=== PATIENT | female | born 2005 | race Caucasian/White ===

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

== ENCOUNTER 2024-01-05 15:17 | Observation (INO) | payer MEDICAID, SELFPAY ==
[2024-01-05] VITALS (14 sets, daily range): BP systolic 115–132; BP diastolic 62–94; PULSE 78–102; BMI 43.3
--- NOTE | 2024-01-05 15:57 | PM.IMHP ---
H&P: HPI History of Present Illness Date/Time: 01/05/24 15:57 Chief Complaint: Abdominal and back pain Narrative: this patient is a 18-year-old 2 para 0010 at 34 weeks gestation with low back pain and abdominal pain and pelvic pressure and vaginal pressure. She reports increased vaginal discharge. She denies any nausea, vomiting, fever, chills. She denies any vaginal bleeding. She denies any loss of fluid. She denies contractions. There is good movement. She denies any headache, blurry vision, epigastric pain. She denies any chest pain or shortness of breath. We will observe the patient for a time. We will check her cervix to confirm that there is no advanced dilation of the cervix. Rule out labor. Rule out urinary tract infection. We will give her treatment measures for low back pain and pelvic pain with vaginal pressure. Review of Systems Review of Systems: All systems reviewed & are unremarkable except as noted in HPI and below Constitutional: Constitutional: Denies chills, Denies fatigue, Denies fever(s) and Denies weakness Eyes: Eyes: Denies blurry vision, Denies change in vision, Denies loss of peripheral vision, Denies loss of vision, Denies other visual disturbances and Denies eye pain ENT: Denies vertigo, Denies dizziness, Denies hearing loss, Denies mouth pain, Denies nasal obstruction, Denies neck mass and Denies neck pain Cardiovascular: Cardiovascular: Denies chest pain, Denies diaphoresis, Denies syncope, Denies leg edema and Denies dyspnea Respiratory: Respiratory: Denies chest congestion, Denies cough, Denies hemoptysis, Denies dyspnea and Denies wheezing Gastrointestinal: Gastrointestinal: Denies abdominal pain, Denies constipation, Denies diarrhea, Denies nausea and Denies vomiting Genitourinary: Genitourinary: Denies hematuria, Denies change in libido, Denies nocturia, Denies genital lesions, Denies flank pain and Denies urinary urgency Musculoskeletal: Musculoskeletal: Denies abnormal gait, Denies back pain, Denies myalgias, Denies arthralgias, Denies joint swelling, Denies muscle weakness and Denies neck pain Integumentary/Breasts: Skin/Breast: Denies swelling, Denies breast pain, Denies breast mass, Denies dry skin, Denies nipple discharge, Denies unusual bruising and Denies jaundice Neurologic: Denies Neuro-related abnormal movements, Denies Abnormal speech present, Denies abnormal gait, Denies behavioral changes, Denies confusion, Denies vertigo, Denies dizziness, Denies syncope, Denies loss of vision, Denies memory loss, Denies convulsions and Denies weakness Psychiatric: Psychiatric: Denies abnormal sleep pattern, Denies behavioral changes, Denies change in libido, Denies confusion, Denies depression, Denies anhedonia and Denies memory loss Endocrine: Endocrine: Reports no additional endocrine complaints, Denies change in libido and Denies fatigue Hematologic/Lymphatic: Hematologic/Lymphatic: Reports no additional hematologic/lymphatic complaints Allergic/Immunologic: Allergic/Immunologic: Reports no additional allergic/immunologic complaints and Denies wheezing PMFSH Past Medical History Medical History No pertinent past medical history Vapes nicotine containing substance Surgical History Surgical History No significant past surgical history Family History Family History (Updated 07/13/20 @ 12:09 by LOPEZ Oliveira) Father Hypertension Diabetes mellitus Mother Alive and well Social History Social History Tobacco type: e-cigarettes/vaping Second hand tobacco smoke exposure: No Alcohol intake: former Substance use: never Living arrangements: with family Occupation/Education: student Gender identity (if verbalized by the patient): Female Sexual Orientation (if Verbalized by the Patient): Straight or Heterosexual Meds [place]
[2024-01-05 15:59] LABS: Add Urine Microscopic? YES; Appearance Urine Clear (Clear); Bacteria Urine Rare /hpf; Bilirubin Urine Negative (Negative); Blood Urine Negative (Negative); Color Urine Yellow (Yellow); Glucose Urine UA Negative (Negative); Ketones Urine Negative (Negative); Leukocyte Esterase Ur Trace LEU/UL (Negative); Nitrate Urine Negative (Negative); Non Pathogenic Casts 0-2; Protein Urine 2+ mg/dL (Negative); RBC Urine 0-2 /hpf (0-2); Specific Grav Ur 1.011 (1.001-1.035); Squamous Epithelial Cell Urine Few /hpf (Few)
[2024-01-05] MEDS: ACETAMINOPHEN 500 MG TABLET 1000 MG PO (17:14)
[2024-01-05] MEDS: cefTRIAXone 1 GM VIAL IM (17:16)
--- NOTE | 2024-01-05 18:22 | OBADM ---
This patient, Chani Kelly, admitted to the OB room OB Post 112 for observation. Patient/family oriented to hospital policies and general routines including ID bracelet, bed and alarms, visiting hours, pain management, procedures, bathroom and other care routines, personal items, smoking policy, room service/diet, and visiting hours. Patient/Family are encouraged to report perceived risks to care and to ask questions if they do not understand what they are told or what they should do.
--- NOTE | 2024-02-01 19:53 | PM.OBTRLD ---
OB - Triage/Final Diagnosis Visit Information Comments/Additional reasons for admission: I have assessed the risk for this patient, Chani Kelly, and determined that she would benefit from observation care. Evaluation Laboratory results: Laboratory Tests 01/05/24 15:44 Urine Color Yellow Urine Appearance Clear Urine pH 7.0 Ur Specific [place] 1.011 Urine Protein 2+ H Urine Glucose (UA) Negative Urine Ketones Negative Ur Blood (Man) Negative Urine Nitrate Negative Urine Bilirubin Negative Urine Urobilinogen 1.0 Leukocyte Esterase Rfl Trace H Urine RBC 0-2 Urine WBC 6-10 H Ur Squamous Epith Cells Few Urine Bacteria Rare Urine Casts 0-2 Final Diagnosis (1) Pelvic pain: Code(s): R10.2 - Pelvic and perineal pain Status: Acute
== END 2024-01-05 19:02 | disposition home or self-care (01) ==
PROVIDERS: Admitting Provider Obstetrics & Gynecology; Visit Provider Obstetrics & Gynecology
DX: O26.893 Other specified pregnancy related conditions, third trimester (principal); R10.9 Unspecified abdominal pain; R10.2 Pelvic and perineal pain; N89.8 Other specified noninflammatory disorders of vagina; M54.50 Low back pain, unspecified; Z3A.34 34 weeks gestation of pregnancy
CPT/HCPCS: 81001; 87086; 87088; 96372; A9270; G0378; G0379; J0696

== ENCOUNTER 2024-01-31 11:50 | Outpatient (RCR) | payer MEDICAID, OTHER, SELFPAY ==
[2023-11-04 13:51] VITALS: BP 131/77; PULSE 92
[2024-01-31 12:42] VITALS: BP 125/73; PULSE 108
== END 2024-02-02 23:59 | disposition home or self-care (01) ==
LOC: ANHOBOP 11:50
PROVIDERS: Visit Provider Obstetrics & Gynecology
DX: O36.8190 Decreased fetal movements, unspecified trimester, not applicable or unspecified (principal)
CPT/HCPCS: 59025

== ENCOUNTER 2024-02-06 16:05 | Inpatient (IN) | payer MEDICAID, SELFPAY ==
[2024-02-06] VITALS (12 sets, daily range): BP systolic 121–143; BP diastolic 55–101; PULSE 86–119; TEMP 36.2–36.6; BMI 45.3
--- NOTE | 2024-02-06 16:05 | LDADM ---
This patient, Chani Kelly, was admitted to Labor/Delivery/Recovery 103 on 02/06/24 at 16:05. Plans for labor, pain management and were discussed with patient. Patient/family oriented to hospital policies and general routines including ID bracelet, bed and alarms, visiting hours, pain management, procedures, bathroom and other care routines, personal items, smoking policy, room service/diet and guest tray routines, security routines, and visiting hours. Patient/Family are encouraged to report perceived risks to care and to ask questions if they do not understand what they are told or what they should do. See OBIX for further documentation.
[2024-02-06 16:50] LABS: Basophils Percent Auto 0.2 % (0.2-1.2); Eosinophils Absolute Auto 0.2 K/mm3 (0-0.3); Eosinophils Percent Auto 1.4 % (0-4.4); Hematocrit 36.9 % (37.0-47.0); Hemoglobin 12.5 g/dL (12.0-15.0); Immature Granulocyte Absolute 0.03 K/mm3 (0.00-0.031); Immature Granulocyte Percent A 0.2 % (0-0.5); Lymphocytes Percent Auto 19.9 % (18.3-44.2); Mean Corpuscular HGB Conc 33.9 g/dl (32-36); Mean Corpuscular Hemoglobin 30.1 pg (26-34); Mean Corpuscular Volume 88.9 fl (80-100); Mean Platelet Volume 9.6 fl (7.4-10.4); Monocytes Percent Auto 7.9 % (2.6-8.5); Neutrophils Absolute Auto 8.5 K/mm3 (1.3-6.7); Neutrophils Percent Auto 70.4 % (45.5-73.1); Platelet Count Result 277 k/mm3 (150-375); Red Blood Count 4.15 M/mm3 (4.2-5.4); Red Cell Distribution Width 13.1 % (11.5-14.5); White Blood Count 12.1 K/mm3 (4.5-10.0)
[2024-02-06] MEDS: miSOPROStol 25 MCG TABLET 50 MCG BUCCAL ×2 (17:02→21:13)
[2024-02-06 17:33] LABS: Rapid Plasma Reagin Non-Reactive (NonReactive)
[2024-02-06 17:44] LABS: HIV 1/2 Ab P24 Ag Result Negative (Negative)
--- NOTE | 2024-02-06 20:44 | WPDANESEPP ---
Anes - Eval Pre Procedure Procedure: labor epidural Date/Time: 02/06/24 20:44 Surgeon: daksha Preop Diagnosis: pain during labor Pre Op Diagnosis: Induction Patient Data Age: 18 Gender: F Height: 1.6 m Weight: 116 kg Last Vital Signs Temp 36.2 C L 02/06/24 16:59 Pulse 91 02/06/24 20:01 BP 133/94 H 02/06/24 20:01 O2 Del Method Room Air 02/06/24 18:42 Allergies Allergy/AdvReac Type Severity Reaction Status Date / Time No Known Allergies Allergy Verified 01/05/24 18:16 Home Medications Medication Instructions Recorded Confirmed Type wzhvalzv-bnl-Rw-FA 1 mg 1 tablet PO DAILY 01/05/24 02/06/24 History tablet Laboratory Tests 02/06/24 16:24 WBC 12.1 H K/mm3 (4.5-10.0) RBC 4.15 L M/mm3 (4.2-5.4) Hgb 12.5 g/dL (12.0-15.0) Hct 36.9 L % (37.0-47.0) MCV 88.9 fl (80-100) MCH 30.1 pg (26-34) MCHC 33.9 g/dl (32-36) RDW 13.1 % (11.5-14.5) Plt Count 277 k/mm3 (150-375) MPV 9.6 fl (7.4-10.4) Immature Gran % (Auto) 0.2 % (0-0.5) Neut % (Auto) 70.4 % (45.5-73.1) Lymph % (Auto) 19.9 % (18.3-44.2) [place] % (Auto) 7.9 % (2.6-8.5) Eos % (Auto) 1.4 % (0-4.4) Baso % (Auto) 0.2 % (0.2-1.2) Lymph # (Auto) 2.40 K/mm3 (0.9-3.2) [place] # (Auto) 1.0 H K/mm3 (0.1-0.6) Eos # (Auto) 0.2 K/mm3 (0-0.3) Baso # (Auto) 0.0 K/mm3 (0.0-0.1) Abs Immat Gran (auto) 0.03 K/mm3 (0.00-0.031) Absolute Neuts (auto) 8.5 H K/mm3 (1.3-6.7) Absolute Nucleated RBC 0.000 K/mm3 (0.0-0.012) Nucleated RBC % 0.0 % (0.0-0.2) RPR Non-reactive (NonReactive) HIV 1&2 Ab/P24 Ag 4thGn Negative (Negative) Blood Type AB Positive Antibody Screen Negative Patient hx anesthesia problems: none Family hx anesthesia problems: none Results Review: All pre-operative results and documents have been reviewed as part of the pre-operative evaluation. [facility] Past Medical History Medical History IUP (intrauterine ), incidental Morbid obesity with BMI of 45.0-49.9, adult No pertinent past medical history Vapes nicotine containing substance Surgical History Surgical History No significant past surgical history Family History Family History Father Hypertension Diabetes mellitus Mother Alive and well Social History Social History Smoking status: Never smoker Tobacco type: e-cigarettes/vaping Second hand tobacco smoke exposure: No Alcohol intake: former Substance use: never Do You Feel Safe in your Home?: Yes Lack of Transportation: No Lack of Food: Never True Current Housing: I Have Housing Concerned About Future Housing: No Difficulty Paying Gas/Electric Bills: No Difficulty Paying for Meds: No Currently Unemployed: No Education: Grade School Difficulty w/ Childcare or Family Care: No Living arrangements: with family Occupation/Education: student Gender identity (if verbalized by the patient): Female Sexual Orientation (if Verbalized by the Patient): Straight or Heterosexual Spiritual care concerns: No Exam Day of Procedure 02/06/24 20:44
[2024-02-07] VITALS (103 sets, daily range): BP systolic 82–178; BP diastolic 49–130; PULSE 72–119; RESP 16–18; TEMP 36.1–37.2; O2SAT 97–100
[2024-02-07] MEDS: miSOPROStol 25 MCG TABLET 50 MCG BUCCAL ×2 (01:15→05:23)
[2024-02-07] MEDS: fentaNYL CITRATE INJ (*CRX) 100 MCG/2 ML VIAL IV PUSH (07:21)
[2024-02-07] MEDS: LACTATED RINGERS 1,000 ML 125 ML IV CONT ×2 (07:41→09:38)
[2024-02-07] MEDS: OXYTOCIN 30 UNITS/NS 500 ML 30 UNITS/500 ML BAG IV CONT (13:20)
--- NOTE | 2024-02-07 13:20 | PM.IMHP ---
H&P: HPI History of Present Illness Date/Time: 02/07/24 08:00 Chief Complaint: elective induction of labor Narrative: Patient is a 18 year old who presents for elective induction of labor. She denies strong contractions on arrival, no LOF or VB.Good movement. Her has been uncomplicated. Review of Systems Review of Systems: All systems reviewed & are unremarkable except as noted in HPI and below PMFSH Past Medical History Medical History IUP (intrauterine ), incidental Morbid obesity with BMI of 45.0-49.9, adult No pertinent past medical history Vapes nicotine containing substance Surgical History Surgical History No significant past surgical history Family History Family History Father Hypertension Diabetes mellitus Mother Alive and well Social History Social History Smoking status: Never smoker Tobacco type: e-cigarettes/vaping Second hand tobacco smoke exposure: No Alcohol intake: former Substance use: never Do You Feel Safe in your Home?: Yes Lack of Transportation: No Lack of Food: Never True Current Housing: I Have Housing Concerned About Future Housing: No Difficulty Paying Gas/Electric Bills: No Difficulty Paying for Meds: No Currently Unemployed: No Education: Grade School Difficulty w/ Childcare or Family Care: No Living arrangements: with family Occupation/Education: student Gender identity (if verbalized by the patient): Female Sexual Orientation (if Verbalized by the Patient): Straight or Heterosexual Spiritual care concerns: No Meds Home Medications and Allergies Home Medications Medication Instructions Recorded Confirmed Type msizaloc-paq-Uk-FA 1 mg 1 tablet PO DAILY 01/05/24 02/06/24 History tablet Allergies Allergy/AdvReac Type Severity Reaction Status Date / Time No Known Allergies Allergy Verified 01/05/24 18:16 Vital Signs Vital Signs - 24 hr 02/06/24 16:51 02/06/24 16:59 02/06/24 17:16 Temperature 97.2 F L Pulse Rate 87 88 Blood Pressure 128/81 121/83 Pulse Oximetry Oxygen Delivery 02/06/24 17:31 02/06/24 17:57 02/06/24 18:00 Temperature Pulse Rate 86 91 95 Blood Pressure 136/88 137/89 121/101 H Pulse Oximetry Oxygen Delivery 02/06/24 19:00 02/06/24 20:01 02/06/24 18:30 Temperature 97.8 F Pulse Rate 119 H 91 Blood Pressure 130/79 133/94 H Pulse Oximetry Oxygen Delivery 02/06/24 21:01 02/06/24 22:01 02/06/24 23:01 Temperature Pulse Rate 99 92 87 Blood Pressure 140/89 143/85 H 129/55 L Pulse Oximetry Oxygen Delivery 02/07/24 00:01 02/07/24 00:04 02/07/24 00:06 Temperature Pulse Rate 90 93 90 Blood Pressure 154/114 H 178/130 H 128/55 L Pulse Oximetry Oxygen Delivery 02/07/24 01:01 02/07/24 02:01 02/07/24 03:00 Temperature Pulse Rate 95 85 87 Blood Pressure 142/85 H 115/67 112/64 Pulse Oximetry Oxygen Delivery 02/07/24 04:22 02/07/24 04:24 02/07/24 04:31 Temperature Pulse Rate 94 92 86 Blood Pressure 127/100 H 139/101 H 134/98 H Pulse Oximetry Oxygen Delivery 02/07/24 05:01 02/07/24 05:48 02/07/24 06:30 Temperature Pulse Rate 87 77 90 Blood Pressure 146/95 H 136/103 H 152/88 H Pulse Oximetry Oxygen Delivery 02/07/24 06:31 02/07/24 08:38 02/07/24 08:44 Temperature Pulse Rate 92 88 Blood Pressure 150/88 H 151/96 H Pulse Oximetry 100 97 Oxygen Delivery 02/07/24 08:45 02/07/24 08:48 02/07/24 08:52 Temperature Pulse Rate 89 78 Blood Pressure 149/97 H 120/71 Pulse Oximetry 99 100 Oxygen Delivery 02/07/24 08:54 02/07/24 08:55 02/07/24 08:57 Temperature Pulse Rate 91 80 86 Blood Pressure 129/73 113/56 L 119/68 Pulse Oximetry 100 Oxygen Delivery
--- NOTE | 2024-02-07 14:24 | PM.OBPRVD ---
OB - Vaginal Delivery Note Procedure Delivery date: 02/07/24 Events: Elective Induction of Labor Induction method: Per Misoprostol Protocol Delivery augmentation: Pitocin Delivery monitor: External FHT and Internal Uterine Route of delivery: Episiotomy description: None Laceration Description: Perineal - 2nd Degree Delivery repair: vicryl Specimen: No Quantitative Blood Loss (ml): 100 Anesthesia type: Epidural Disposition: Floor Complications: No immediate complications Narrative: See H&P and notes for details on patient's admission and labor. She progressed to complete cervical dilation and at the appropriate time began pushing. With adequate expulsive efforts by the mother, the baby's head was delivered without difficulty. Nuchal cord was not present. The baby's right shoulder was anterior and delivered under the pubic symphysis without difficulty. The posterior shoulder and the rest of the baby delivered without difficulty. The umbilical cord was doubly clamped and cut after 60 seconds of delayed cord clamping. Care of the was then assumed by the nursing staff. Baby Date of : 02/07/24 Gestational Age by Date: 39 gender: Male Weight (pounds): 7 Weight (ounces): 10 presentation: vertex position: Left Occiput Anterior Placenta delivery description: Expressed Cord Vessel Description: 3 Vessels and Delayed Cord Clamping
[2024-02-07] MEDS: OXYTOCIN 30 UNITS/NS 500 ML 30 UNITS/500 ML BAG 125 UNITS IV CONT (14:32)
--- NOTE | 2024-02-07 16:45 | OBPPTRN ---
Patient transferred to post room #284 via wheelchair. Support person present. Oriented to unit, room, information board, rooming in, admission packet and security measures. Patient verbalizes understanding.
[2024-02-07] MEDS: ACETAMINOPHEN 325 MG TABLET 650 MG PO (21:22)
[2024-02-08] MEDS: IBUPROFEN 600 MG TABLET PO (01:00)
[2024-02-08 04:15] VITALS: BP 119/69; PULSE 86; RESP 14; TEMP 36.5; O2SAT 99
[2024-02-08 04:42] LABS: Hemoglobin 10.6 g/dL (12.0-15.0)
[2024-02-08] MEDS: DOCUSATE SODIUM 100 MG CAPSULE PO (07:49)
[2024-02-08] MEDS: MULTIVIT/MIN/PREN/FOL AC/IRON TABLET 1 TAB PO (07:49)
[2024-02-08 08:00] VITALS: BP 120/80; PULSE 86; RESP 16; TEMP 36.3; O2SAT 100
[2024-02-08 13:01] VITALS: BP 119/79; PULSE 93; RESP 16; TEMP 36.3; O2SAT 100
--- NOTE | 2024-02-08 13:31 | PM.OBPNVD ---
OB - PN: Subj Subjective Date/time seen: 02/08/24 13:31 Interval history: PPD#1 Doing well, no issues Pain well controlled Voiding without issue No nausea OB - PN: Obj Data Labs 02/08/24 04:14 Labs: Laboratory Results - last 24 hr 02/08/24 04:14 Hgb 10.6 L Hct 31.0 L OB - PN A/P Assessment and Plan (1) (spontaneous vaginal delivery): Code(s): O80 - Encounter for full-term uncomplicated delivery Status: Acute Plan day: 1 Plan: routine care Time Spent With Patient Time: Total time spent is greater than 50% in coordination of care (as documented) at patient's floor/unit and/or counseling patient: Review of Systems Review of Systems: All systems reviewed & are unremarkable except as noted in HPI and below Exam Const: General: comfortable and no acute distress Orientation/consciousness: patient oriented x3 Resp: Effort & Inspection: normal respiratory effort
--- NOTE | 2024-02-08 17:39 | PC.NURSE ---
1630. This patient reported to her primary RN that she would like to try . She had previously been feeding infant bottles, and had not had any stimulation to her breasts up until this time. Consulted with this mom to assess her feeding desires and confrimed she did want to try to bring baby to the breast. She had some support in the room encouraging her to do so including her mom and sister. Attempts were made to latch baby to the breast after feeding cues were reviewed and confirmed in baby. Infant was unsuccessful at latching to the breast naturally without any tools. Nipple shield provided to mother due to prolonged exposure to bottle nipple. Reviewed good handwashing, cleaning the nipple shield and the appropriate way to apply and use as a tool. Discussed with mom the nipple shield precautions, possible complications associated with the risks and benefits. Reviewed practicing with a nipple shield, then without and how to protect the milk supply and production. was able to latch appropriately on the right breast with the nipple shield in cross cradle position. The baby latched and fed at the breast for about 10 min. Mom encouraged to pump after feeding to help establish her supply. Breast pump provided due to use of nipple shield and to help establish moms milk supply. Instructions given on cleaning, care, usage, that there should be no pain, pumping schedule for milk production, collection, and storage of human milk. Patient was assessed for correct placement, flange size, to pump for comfort and nipple stretching/stimulation for adequate milk production every 3 hours (8 times in 24 hours) 1-2 times at night. Moms nipples assessed to be a size 20mm on each breast, she was encouraged to use size 24mm flange for the [facility] pump. Parents are encouraged to record the pumping schedule on the feeding sheet.?Mother voiced understanding of the education shared along with mom/baby guide and the pump measurement, flange fit handout for additional resource information. Reported to the Primary RN.Mom and baby guide referred to as a resource for outpatient services, community resources and when to call a provider. Reported to the Primary RN.
--- NOTE | 2024-02-08 18:12 | PC.NURSE ---
1800. Insurance pump provided to patient per her request for one. Information faxed to [facility]. Reivewed how to use pump with patient. Patient was encouraged to call or her primary RN for questions she has about the pump or how to use it.
[2024-02-08 19:00] VITALS: BP 146/84; PULSE 85; RESP 16; TEMP 36.3; O2SAT 100
--- NOTE | 2024-02-09 07:25 | PM.OBPNVD ---
OB - PN: Subj Subjective Date/time seen: 02/09/24 07:25 Interval history: PPD#1 Doing well, no issues Pain well controlled Voiding without issue No nausea Patient comments: no complaints, pain well controlled and tolerating diet OB - PN: Obj Data Labs 02/08/24 04:14 OB - PN A/P Plan day: 2 Plan: routine care and discharge home Time Spent With Patient Time: Total time spent is greater than 50% in coordination of care (as documented) at patient's floor/unit and/or counseling patient: Exam Const: General: comfortable and no acute distress Resp: Effort & Inspection: normal respiratory effort Auscultation: no rales, no rhonchi and no wheezes Cardio: Rate: regular rate Heart sounds: no click, no murmurs and no rubs GI: GI Palp: Yes Soft to palpation and No Tenderness to palpation present (GI) Auscultation: normal bowel sounds Extrem: General: normal to inspection, no pedal edema and no calf tenderness
--- NOTE | 2024-02-09 07:26 | P.DS_ITS ---
DS: Admitting Diagnosis Discharge Date 02/09/24 Admitting Diagnosis term DS: Discharge Diagnosis Discharge Diagnosis (1) (spontaneous vaginal delivery): Code(s): O80 - Encounter for full-term uncomplicated delivery Status: Acute OB - DS: Summary OB Procedures : None OB Procedures Intrapartum: Spontaneous Vag Delivery OB Procedures: : None Peripartum Data Laceration Description: Perineal - 2nd Degree Episiotomy description: None Time Spent with Patient Time attestation: Total time spent providing and/or coordinating discharge services: Discharge Plan Discharge Attending physician on discharge: Chet Mccabe Discharging Clinician: Chet Mccabe Patient Disposition: Home, Self-Care Activity: may shower, as tolerated and pelvic rest Diet: as tolerated Patient Instructions: Antibiotic Form Stand Alone Forms: General Discharge Information Follow-up/Referrals: Chet Mccabe MD [Physician] - 4 Weeks Discharge Medications: New ibuprofen 600 mg Tablet 600 mg PO Q6H PRN (Reason: Cramping) Qty: 30 0RF docusate sodium 100 mg Capsule 100 mg PO BID PRN (Reason: Constipation) Qty: 60 0RF Continued [id number] 1 mg Tablet 1 tablet PO DAILY Date of admission: 02/06/24 16:05 Primary Care Provider: PHYSICIAN,MANAGER CONTENT Admitting Provider: Chet Mccabe Attending physician on admission: Chet Mccabe Condition: Stable
[2024-02-09 08:50] VITALS: BP 142/87; PULSE 82; RESP 18; TEMP 36.2; O2SAT 100
[2024-02-09] MEDS: MULTIVIT/MIN/PREN/FOL AC/IRON TABLET 1 TAB PO (09:00)
[2024-02-09] MEDS: DOCUSATE SODIUM 100 MG CAPSULE PO (09:01)
== END 2024-02-09 12:05 | disposition home or self-care (01) | DRG 560 ==
LOC: ANHLDR 16:57 → ANHOB2 02-07 16:58
PROVIDERS: Admitting Provider Obstetrics & Gynecology; Visit Provider Obstetrics & Gynecology
DX: O99.214 Obesity complicating childbirth (principal); E66.01 Morbid (severe) obesity due to excess calories; O70.1 Second degree perineal laceration during delivery; Z3A.39 39 weeks gestation of pregnancy; Z37.0 Single live birth
CPT/HCPCS: 36415; 85014; 85018; 85025; 86592; 86703; 86850; 86900; 86901; A9270; G0432; J2590; J2795; J3010; J7120

== ENCOUNTER 2025-03-03 15:11 | Emergency (ER) | payer OTHER, SELFPAY ==
--- OUTSIDE RECORDS SUMMARY | 2025-03-03 15:13 | XMS_ITS | Data Portability ---
Author Organization [facility] [place] Address [address] [place] [address] Assessment No assessment recorded. Plan of Treatment Reminders Order Date Submit Date Provider Last Modified By Organization Details Last Modified Time Details Appointments TEST OF CURE 2024 10:45A JANAK Rodriguez Not available Not available Not available Lab hbcab (hepatiti s B core Ab) igm, serum 2024 025 [facility] (Lab), [address] , [place], [address], 02/06/2025 08:55:55 HBsAg (hepatiti s B surface Ag), serum 2024 025 [facility] (Lab), [address] [place], [address], 02/06/2025 08:55:54 hepatitis C virus Ab, serum 2024 025 [facility] (Lab), [address] , [place], [address], 02/06/2025 08:55:55 HIV 1+2 AB + HIV 1 p24 Ag, qualitati ve immunoass ay, serum 2024 025 [facility] (Lab), [address] [place], [address], 02/06/2025 08:55:55 RPR (rapid plasma reagin), serum 2024 025 [facility] (Lab), [address], [place], [address], 02/06/2025 08:55:56 unlisted lab - women's health swab plus, DELROY 2024 025 [facility] (Lab), [address], [place], [address], 02/06/2025 08:55:56 Referral None recorded. Procedures None recorded. Surgeries None recorded. Imaging None recorded. Medication Orders metronida zole 500 mg tablet 2024 025 [facility] #[id number], [address], [place], [id number], 02/18/2025 05:01:15 Xulane 150 mcg-35 mcg/24 hr transderm al patch 2023 024 [facility] #[id number], [address], [place], [id number], 03/10/2024 12:29:37 Patient TargetsNo targets recorded. Patient InstructionsNo instructions recorded. Reason for Referral None Reported. Results Created Date Observation Date Name Description Value Unit Range Abnormal Flag Note LastModifiedBy Organization Detail LastModifiedTime 01/17/20 24 01/17/2024 CULTU RE: GROUP B STREP SCREE N result report SEE RESULT S BELOW Test: Cultu re: Group B Strep Scree n - Vagin al/Re ctal Speci men Sourc e: Vagin a/Rec manuela Speci men Type: Vagin al/Re ctal Speci men Date: 1407 Resul t Date: 1443 Resul t Statu s: Final resul t Abnor mal: No Resul ting Lab: [facility] [address] [facility] [address] Tel: CULTU RE ----- ----- ----- --- No Group B strep isola randolph at 2 days (louis ctive broth enhan auraen t) Not Available [facility] (Lab) [address] [place], [address], 01/20/2024 15:46:29 03/09/20 24 03/09/2024 WOMEN 'S HEALT H SWAB PLUS, DELROY bacterial vaginosis (bv), tma Positi ve negati ve abnormal Not Available [facility] (Lab) [address] [place], [address], 03/13/2024 11:57:52 03/09/2003/09/2024 WOMEN 'S HEALT H SWAB PLUS, DELROY pura species, tma Negati ve negati ve Not Available [facility] (Lab) [address], [place], [address], 03/13/2024 11:57:52 03/09/20 24 03/09/2024 WOMEN 'S HEALT H SWAB PLUS, DELROY pura glabrata, tma Negati ve negati ve Not Available [facility] (Lab) [address] [place], [address], 03/13/2024 11:57:52 03/09/20 24 03/09/2024 [facility] [place]Y trichomonas vaginalis, tma Negati ve negati ve Not Available [facility] (Lab) [address] [place], [address], 03/13/2024 11:57:52 03/09/20 24 03/09/2024 [facility] DELROY chlamydia trachomatis, PCR Negati ve negati ve Not Available [facility] (Lab) [address] [place], [address], 03/13/2024 11:57:52 03/09/20 24 03/09/2024 WOMEN 'S HEALT H SWAB PLUS, DELROY neisseria gonorrhoeae, PCR Negati ve negati ve Bacte rial vagin osis detec ts the follo wing bacte lewis assoc iated with bacte rial vagin osis (BV): Lacto bacil raúl (L. gasse ri, L. crisp atus and L. jense skylar), Gardn erell a vagin yessenia, and Atopo bium vagin ae. A singl e quali tativ e resul t is repor randolph base on instr ument softw are to deter mine BV posit мария or negat мария statu s. The [facility]i es group tests for C. albic ans, C. tropi calis , C. parap sada is, C. dubli niens is. Testi ng is perfo rmed using the Trans cript ion Media randolph Ampli ficat ion metho d. Tests for Mil[facility] da glabr bette, Trich omona s vagin yessenia, Chlam ydia trach omati s, and Neiss eria gonor rhoea e are also inclu ded in this panel . Not Available [facility] (Lab) [address], [place], [address], 03/13/2024 11:57:52 02/05/2002/04/2025 HEPAT ITIS B SURFA CE ANTIG EN hepatitis B surface antigen Non-re active non-re active This assay was perfo rmed using [employer] ratio n reage nts and test kits. Value s obtai bigg with other assay metho ds or kits canno t be used inter alatorre eably . Not Available [facility] (Lab) [address] , [place], [address], 02/06/2025 08:55:54 02/05/2002/04/2025 HIV 1/2 ANTIG EN/AN TIBOD Y, REFLE X CONFI RMATI ON HIV antigen/anti body Nonrea ctive nonrea ctive HIV-1 antig en and HIV-1 /HIV- 2 antib odies were not detec randolph. No labor atory evide nce of HIV infec tion. Not Available [facility] (Lab) [address], [place], [address], 02/06/2025 08:55:55 02/05/2002/04/2025 HEPAT ITIS C ANTIB ALESSANDRO SCREE N, REFLE X TO CONFI RMATI ON hepatitis C antibody Non-re active non-re active Antib odies to HCV Not Detec randolph, does not exclu de the possi bilit y of expos ure to HCV. Not Available [facility] (Lab) [address], [place], [address], 02/06/2025 08:55:55 02/05/2002/04/2025 HEPAT ITIS B CORE, IGM hepatitis B core IgM antibody Non-re active non-re active Antib odies to Hepat itis B Core IgM not detec randolph. Does not exclu de the possi bilit y of expos ure to or infec tion with HBV. Corre late with other Hepat itis B serol ogies . Not Available [facility] (Lab) [address], [place], [address], 02/06/2025 08:55:55 02/05/2002/04/2025 RPR SCREE N, REFLE X TITER /CONF IRMAT ION RPR qualitative Nonrea ctive nonrea ctive Not Available [facility] (Lab) [address] [place], [address], 02/06/2025 08:55:56 02/05/20 25 02/04/2025 WOMEN 'S HEALT H SWAB PLUS, DELROY bacterial vaginosis (bv), tma Positi ve negati ve abnormal Not Available [facility] (Lab) [address] [place], [address], 02/06/2025 08:55:56 02/05/20 25 02/04/2025 WOMEN 'S HEALT H SWAB PLUS, DELROY pura species, tma Negati ve negati ve Not Available [facility] (Lab) [address] [place], [address], 02/06/2025 08:55:56 02/05/20 25 02/04/2025 WOMEN 'S HEALT H SWAB PLUS, DELROY pura glabrata, tma Negati ve negati ve Not Available [facility] (Lab) [address] [place], [address], 02/06/2025 08:55:56 02/05/20 25 02/04/2025 WOMEN 'S HEALT H SWAB PLUS, DELROY trichomonas vaginalis, tma Negati ve negati ve Not Available [facility] (Lab) [address] [place], [address], 02/06/2025 08:55:56 02/05/2002/04/2025 [facility] [place] chlamydia trachomatis, PCR Positi ve negati ve abnormal Posit мария: Prese nce of C. trach omati s (by SOL) Chlam ydia trach omati s RNA detec randolph by PCR. Not Available [facility] (Lab) [address] [place], [address], 02/06/2025 08:55:56 02/05/2002/04/2025 [facility] [place] neisseria gonorrhoeae, PCR Negati ve negati ve Bacte rial vagin osis detec ts the follo wing bacte lewis assoc iated with bacte rial vagin osis (BV): Lacto bacil raúl (L. gasse ri, L. crisp atus and L. jense skylar), Gardn erell a vagin yessenia, and Atopo bium vagin ae. A singl e quali tativ e resul t is repor randolph base on instr ument softw are to deter mine BV posit мария or negat мария statu s. The [facility] speci es group tests for C. albic ans, C. tropi calis , C. parap sada is, C. dubli niens is. Testi ng is perfo rmed using the Trans cript ion Media randolph Ampli ficat ion metho d. Tests for Miladys da glabr bette, Trich omona s vagin yessenia, Chlam ydia trach omati s, and Neiss eria gonor rhoea e are also inclu ded in this panel . Not Available [facility] (Lab) [address], [place], [address], 02/06/2025 08:55:56 12/19/19 24 12/19/2023 US, obste tric, follo w-up No observ ation record ed. [email or web address] [place] [address], [place], [address], 12/19/2023 12:59:06 12/19/19 24 12/19/2023 US, obste tric, follo w-up No observ ation record ed. [id number] [facility] [place], [address], 12/21/2023 07:56:45 01/31/20 24 01/31/2024 non-s tress test No observ ation record ed. [email or web address] [facility] [address], [place], [address], 01/31/2024 14:51:25 Result Notes None recorded. Problems Name Problem SNOMED Code Status Onset Date Resolution Date Notes Provider Name and Address Organization Details Recorded Time [id number] Completed 024 02/09/2024 Leigh Ann roblero [facility] 12:30:13 Problem Notes None recorded. Procedures Surgical History Date Name Laterality Status Provider Name and Address Organization Details Recorded Time 11/14/19 25 termination of completed [facility] 02/04/2025 12:38:08 10/15/19 25 termination of completed [facility] 02/04/2025 12:38:03 07/15/19 23 termination of completed Cony Ignacio [facility] 05/23/2023 10:57:35 Imaging Results None recorded. Procedure Notes None recorded. Medical Equipment None Reported. Allergies No known drug allergies Medications Name Sig Start Date Stop Date Status Note LastModified by Organization Details LastModified Time metronidazo le 500 mg tablet Take 1 tablet every 12 hours by oral route for 7 days. 02/18 completed Not Available Not Available Not Available doxycycline monohydrate 100 mg capsule TAKE 1 CAPSULE BY MOUTH TWICE DAILY FOR 7 DAYS 06/22 completed Not Available Not Available Not Available promethazin e 25 mg tablet TAKE 1 TABLET BY MOUTH EVERY 4-6 HOURS NEEDED NAUSEA active Not Available Not Available No t Available ibuprofen 600 mg tablet TAKE 1 TABLET BY MOUTH EVERY 6 HOURS NEEDED FOR PAIN active Not Available Not Available No t Available doxycycline hyclate 100 mg tablet Take 1 tablet twice a day by oral route for 7 days. 02/20 completed Not Available Not Available Not Available nitrofurant oin monohydrate /macrocryst als 100 mg capsule TAKE 1 CAPSULE BY MOUTH EVERY 12 HOURS WITH FOOD 02/04 completed Not Available Not Available Not Available active Not Available Not Avai lable Not Available Xulane 150 mcg-35 mcg/24 hr transdermal patch APPLY 1 PATCH TOPICALLY TO THE SKIN EVERY WEEK active Not Available Not Available No t Available Vitals Date Recorded Body height Body mass index (BMI) Body mass index (BMI) [Percentile] Per age and sex Body weight Systolic And Diastolic Provider Name and Address Organization Details Last Updated DateTime 01/17/2024 160.02 cm 44 kg/m2 99.57 % 362022. 34 g 120/82 mm[Hg] Suzette Murray [facility] 4 12:37:57 Date Recorded Body weight Body mass index (BMI) [Percentile] Per age and sex Body mass index (BMI) Body height Systolic And Diastolic Provider Name and Address Organization Details Last Updated DateTime 01/24/2024 272662. 80949 g 99.64 % 44.6 kg/m2 160.02 cm 137/80 mm[Hg] Cony Ignacio [facility] 4 16:17:05 Date Recorded Body height Body mass index (BMI) [Percentile] Per age and sex Body mass index (BMI) Body weight Systolic And Diastolic Provider Name and Address Organization Details Last Updated DateTime 01/30/2024 160.02 cm 99.7 % 45.2 kg/m2 703185. 05 g 143/86 mm[Hg] Renee Aviles [facility] 4 12:19:35 Date Recorded Body height Body mass index (BMI) Body mass index (BMI) [Percentile] Per age and sex Body weight Systolic And Diastolic Provider Name and Address Organization Details Last Updated DateTime 02/04/2025 160.02 cm 41.1 kg/m2 98 % 031782. 43 g 134/90 mm[Hg] Christi Jose [facility] 5 12:33:38 Date Recorded Body height Body mass index (BMI) Body mass index (BMI) [Percentile] Per age and sex Body weight Systolic And Diastolic Provider Name and Address Organization Details Last Updated DateTime 03/09/2024 160.02 cm 45.2 kg/m2 99.68 % 362373. 05 g 136/82 mm[Hg] Renee Aviles [facility] 4 16:32:20 Social History Question Answer Notes LastModified by Organizat ion Details LastModified Time Tobacco Smoking Status Never Smoker Cony roblero, [facility] 05/23/2023 10:57:06 If You Are , What Was Your Level Of Alcohol Consumption Prior To ? Occasional [email or web address] Information not available 12/05/2023 Are You Blind Or Do You Have Difficulty Seeing? No [email or web address] Information n ot available 05/23/2023 What Is Your Level Of Caffeine Consumption? Heavy [email or web address] Information not available 05/23/2023 In The 14 Days Before Symptom Onset, Have You Had Close Contact With A Laboratory-confirm ed COVID-19 While That Case Was Ill? No Information n ot available 05/23/2023 In The 14 Days Before Symptom Onset, Have You Had Close Contact With A Person Who Is Under Investigation For COVID-19 While That Person Was Ill? No Information not available 05/23/2023 Have You Been To An Area Known To Be High Risk For COVID-19? No [email or web address] Information not available 05/23/2023 Are You Deaf Or Do You Have Serious Difficulty Hearing? No [email or web address] Information not available 05/23/2023 What Type Of Diet Are You Following? REGULAR Information n ot available 05/23/2023 Have You Ever Been Counseled For Unhealthy Alcohol Use? No [email or web address] Information not available 05/23/2023 Do You Use Your Seat Belt Or Car Seat Routinely? Yes Information not available 05/23/2023 Do You Have Smoke And Carbon Monoxide Detectors In Your Home? Yes Information not available 05/23/2023 Do You Use Sunscreen Routinely? Yes [email or web address] Information not available 05/23/2023 Has Tobacco Cessation Counseling Been Provided? No [email or web address] Information not available 05/23/2023 Do You Have Difficulty Walking Or Climbing Stairs? No [email or web address] Information not available 05/23/2023 Sex: Unknown Functional Status Question Answer Note LastModified by Organizat ion Details LastModified Time Do you use any illicit or recreational drugs? No [email or web address] Information not available 05/23/2023 Do you or have you ever used any other forms of tobacco or nicotine? Yes [email or web address] Information not available 05/23/2023 What is your level of alcohol consumption? None [email or web address] Information not available 12/05/2023 Are you able to walk independently without assistance or assistive devices? [email or web address] Information not available 05/23/2023 Are you able to care for yourself independently? Yes [email or web address] Information not available 05/23/2023 Do you have difficulty dressing, bathing, grooming, or toileting? No [email or web address] Information not available 05/23/2023 Do you or have you ever used e-cigarettes or vape? Current user of electronic cigarettes [email or web address] Information not available 05/23/2023 What is your exercise level? Occasional [email or web address] Information not available 05/23/2023 Mental Status Question Answer Note LastModified by Organization D etails LastModified Time Do you feel stressed (tense, restless, nervous, or anxious, or unable to sleep at night)? [id number] [email or web address] Information not available 05/23/2023 Family History Relationship Description Onset Age of this Age Resolved Age Notes LastModified by Organization Details LastModified Time Maternal Grandmother Malignant neoplasm of breast [email or web address] Not available 05/23 10:58:36 Father Hypertensive disorder [email or web address] Not available 05/23 10:58:49 Medical History Condition Response Allergies (Food, seasonal, environmental ) N Other N Drug/Latex Allergies/Reactions N Blood Transfusion N Breast Cancer N Dermatologic Disorders N Lung Disease N Defects or Inherited Disease N Breast Problem N Gestational Diabetes N Hematologic disorders N Anesthesia Complications N History of STI N Deep Vein Thrombosis N Polycystic ovary syndrome N Anxiety Disorder N Autoimmune disease N Arthritis N Polyps N Infertility N Acid Reflux (GERD) N History of abnormal pap N Cancer N Varicosities N Stroke N Neurologic/Epilepsy N Endometriosis N High Cholesterol N Fibromyalgia N Headaches N Kidney Disease N Heart Problems N Thyroid Problems N Kidney or Bladder Problems N GI Problems N Eating Disorder N Anemia N Art (IVF or FET) N Psychiatric Illness N Ovarian Cancer N Diabetes N Pulmonary (TB, Asthma) N Hepatitis/Liver Disease N No Past Medical History N Eczema N Urinary Tract Infection N Abuse/Domestic Violence N Asthma N Trauma/Violence N Depression/ depression N Heart Disease N Pre-Eclampsia N Hypertension N Osteoporosis N Thrombophilias N Gynecological History Statement/Question Response Abnormal Pap Y Flow Light Date of Last Mammogram Date of LMP 01/13/2025 Was last menstrual period normal N STIs/STDs N HPV Vaccine N Duration of Flow (days) 2 Current Control Method None Are cycles usually normal Y Date of Last Colonoscopy Sexually Active? Y Menses Monthly Y Date of DEXA bone scan Date of Last Pap Smear Sexual Problems? N LMP Approximate Obstetrics History GPAL:G 4 P 1 0 3 1 Type Value Full Term 1 Induced 3 Living 1 Total 4 Past Encounters Encounter ID Performer Location Encounter Start Date Encounter Closed Date Diagnosis/Indication Diagnosis SNOMED-CT Code Diagnosis ICD10 Code Diagnosis IMO Codes Diagnosis Note [id number] JANAK [place] [address] [address] 05/23/2023 10:06:30 05/23/2023 11:58:41 Venereal disease screening 860745687 Z11.3 Detailed health hx obtained and reviewed todaygc/ct /trich testing sentSerum STI testing ordered per pt requestsaf e sexual practices discussed, condom use encouraged BC methods discussed/ reviewedRT C for WWE or sooner if needed Time spent in visit is a total of 22 mins with at least 50% of visit consisting of counseling and review of plan of care. Sexually t ransmitted infectious disease 0404377 A64 [id number] Prateek Perez MD [place] [address],[place] [address] 06/22/2023 16:23:42 06/22/2023 17:11:22 Uterine size for dates discrepancy 130826626 O26.849 O26.841 [id number] YULIET VELASCO MD [place] [address] [address] 06/22/2023 16:24:21 06/23/2023 08:46:53 test positive 189509029 Z32.01 - LMP unknown, sometime in April- US today demonstrat es embryo with bradycardi a- discussed threatened , recommend repeat US in 1 week to reassess- patient to call with bleeding or worsening abdominal pain [id number] Prateek Perez MD [place] [address],[place] [address] 06/29/2023 15:46:12 06/29/2023 16:42:03 Uncertain viability of 724833048 O36.80X0 R00.1 Z3A.01 [id number] YULIET VELASCO MD [place] [address],[place] [address] 06/29/2023 15:47:46 06/29/2023 18:19:56 test positive 556492272 Z32.01 1. Exam today within normal limits.2. Ultrasound today confirms GA and viability. EDC . GC/Clamydi a testing done: will f/u as indicated. 4. ACOG guidelines and plan of care for reviewed with patient. All questions answered.5 . Return to office at 12 weeks for new OB visit6. Will need new OB labs at next visit.7. Genetic screening: desires. [id number] Prateek Perez MD [place] [address],[place] [address] 08/01/2023 09:24:00 08/01/2023 10:22:14 screening 077175670 Z36.82 Z3A.12 [id number] MD Hemanth MACK [address] [address] 08/01/2023 09:24:20 08/01/2023 10:55:41 Routine care 521811294 Z34.90 [id number] MD Hemanth MAKC [address],[place] [address] 09/05/2023 10:01:33 09/05/2023 10:38:04 Routine care 244498162 Z34.90 [id number] MD Hemanth Muir [address],[place] [address] 09/26/2023 10:00:00 09/26/2023 11:04:03 screening for malformation 028914806 Z36.3 Z3A.20 [id number] MD Hemanth MACK [address],[place] [address] 09/26/2023 10:00:51 10/01/2023 00:26:13 Teenage 610140235 O09.619 Gestation period, 20 weeks 78679859 Z3A.20 [id number] MD Hemanth Muir [address],[place] [address] 10/24/2023 11:47:53 10/24/2023 13:04:22 screening 809772864 Z36.2 Z3A.24 [id number] MD Hemanth MACK [address],[place] [address] 10/24/2023 11:48:37 10/24/2023 13:08:01 Routine care 777658450 Z34.90 [id number] MD Hemanth MACK [address],[place] [address] 11/21/2023 10:33:17 11/21/2023 11:18:48 Routine care 818566004 Z34.90 [id number] MD Hemanth MACK [address],[place] [address] 12/05/2023 14:37:02 12/05/2023 15:16:37 Routine care 466209519 Z34.90 - continue routine care- continue PNV [id number] Prateek Perez MD [place] [address],[place] [address] 12/19/2023 11:26:07 12/19/2023 12:05:46 Uterine size for dates discrepancy 546150916 O26.843 Z3A.32 [id number] YULIET VELASCO MD [place] [address],[place] [address] 12/19/2023 11:26:52 12/19/2023 12:37:18 Routine care 946541095 Z34.90 - continue routine care- continue PNV [id number] YULIET VELASCO MD [place] [address],[place] [address] 01/02/2024 15:46:11 01/02/2024 16:50:53 Routine care 141364414 Z34.90 - continue routine care- continue PNV [id number] YULIET VELASCO MD [place] [address],[place] [address] 01/17/2024 12:28:50 01/17/2024 13:04:56 Routine care 717635079 Z34.90 - continue routine care- continue PNV [id number] YULIET VELASCO MD [place] [address],[place] [address] 01/24/2024 11:35:29 01/26/2024 12:23:19 Routine care 965377595 Z34.90 - continue routine care- continue PNV [id number] YULIET VELASCO MD [place] [address],[place] [address] 01/30/2024 12:10:54 01/30/2024 12:41:39 Elevated blood-pressure reading without diagnosis of hypertension 184780938 R03.0 - warning signs reviewed Gestation period, 38 weeks 50725185 Z3A.38 - continue pNV- EIl scheduled [id number] YULIET VELASCO MD [place] [address] [address] 03/09/2024 16:04:18 03/12/2024 10:18:04 Vaginitis 20737125 N76.0 - will send swab to r/o BV or yeast infection care 11850667 8 Z39.2 S/p 4 weeks ago here today for a visit.1. Patient recovering well2. Plans to continue formula feeding3. Interested in control patch for contracept ion at this time. Risks, benefits, and alternativ es reviewed with the patient. Discussed given her weight, patch may be less effective. Patient declines any other form of control. Condoms recommende d4. Patient instructed to follow up in 6-12 months for well woman exam unless need arises prior [id number] JANAK [place] [address] [address] 02/04/2025 12:06:20 02/04/2025 14:43:31 Vaginal odor 788844513 N89.8 991049 vaginitis/ STI panel sentDiscus sed the various types of STIs, related symptoms and the potential consequenc es (including effects on fertility) of STI infections . Reviewed ways to limit exposure and prevention techniques .vulvar care guidelines discussedr x sent for presumptiv e BV, r/b/a revieweddi scussed probiotics Time spent in visit is a total of 20 mins with at least 50% of visit consisting of counseling and review of plan of care. Venereal d isease screening 010249247 Z11.3 30570 Sexually t ransmitted infectious disease 6933927 A64 Health Concerns Section Related Observation LastModified by Organization Detai ls LastModified Time None Recorded Concern Status LastModified by Organization Details LastModified Time None Recorded Advance Directives Directive None Recorded Payers Insurance Date Sequence Insurance Name Policy Number Policy Velasquez Covered Member ID Velasquez Member ID Guarantor Name 02/05/2025 1 [facility] (MEDICAID HMO) [id number] Chani Kelly [id number] Chani Kelly 02/05/2025 1 [place] [facility] Chani Kelly [id number] Chani Kelly 02/05/2025 1 [facility] (MEDICAID HMO) [id number] Chani Kelly [id number] Chani Kelly Notes Date Note Type Note Provider Name and Address Organization Details Recorded Time 01/17/2024 text/html Generic HPI TemplateReported by Patient YULIET VELASCO MD [address], [place], [address], [facility] 01/17/2024 12:57:47 01/24/2024 text/html Generic HPI TemplateReported by Patient YULIET VELASCO MD [address], [place], [address], [facility] 01/26/2024 11:45:22 01/30/2024 text/html Generic HPI TemplateReported by Patient YULIET VELASCO MD [address], [place], [address], [facility] 01/30/2024 12:39:57 03/09/2024 text/html S/P on 02/07/24 at 39 weeks gestation. Complications with delivery: none. Patient denies any specific problems since delivery. Patient overall feeling well. Patient is formula feeding without problems. Has not had a period yet. No bleeding. Bowel and bladder function are normal. Pap due at age 20. Denies any signs or symptoms of depression. Is coping with parenting well. Patient has not been sexually active since delivery. Patient is interested in contraception at this time. Having some increased discharge, worried she may have BV. YULIET VELASCO MD [address], [place], [address], [facility] 03/10/2024 12:35:13 02/04/2025 text/html 19yo [id number] today for STI testing, new partner recently. Has also noticed a vaginal odor. No itching/irritation/or abnormal d/[facility] JANAK Santa [address], [place], [address], [facility] 02/04/2025 14:34:58 OBGyn Episode Ob Episode Information Episode Created Date Number of Fetuses Patient Bloodtype Patient rh Status Prepregnancy Weight lbs Domestic Partner Domestic Partner Phone Father Name Court Operations Clerk Status 02/05/20 25 1 CLOSED Fetus Data First Name Last Name Admitted to NICU Weight (g) Sex Living Outcome Pediatric Complications Fetus ID Race Codes Race Delivery Type , Induced [id number] Enrico Calculation Initial Enrico Date Initial Exam Date Initial Exam Provider Initial Ultrasound Date Last Menstrual Period Date Ultra Sound Weeks Gestation 0 Eighteen To Twenty Week Enrico Update Ultra Sound Date Fundal Height At Umbil Quickening Date Ultra Sound Latest Weeks Gestation Final Enrico Confirmed By Final Enrico Confirmed Date Final Enrico Date Ultra Sound Latest Days Gestation 0 0 Menstrual History Last Menstrual Date Menses Monthly On Bcp Conception Prior Menses Frequency Hcg Plus Date Menarche Onset Age Delivery Information Delivery Date Delivery Type Labor Anesthesia Weeks Gestation Incision Type Labor Labor Length Hrs Delivered By Post Complications Tubal Sterilization Discharge Date Comments 5 Discharge Information Feeding Method Contraceptive Method Maternal HG B and HCT Levels Ob Episode Information Episode Created Date Number of Fetuses Patient Bloodtype Patient rh Status Prepregnancy Weight lbs Domestic Partner Domestic Partner Phone Father Name Court Operations Clerk Status 02/05/20 25 1 CLOSED Fetus Data First Name Last Name Admitted to NICU Weight (g) Sex Living Outcome Pediatric Complications Fetus ID Race Codes Race Delivery Type , Induced [id number] Enrico Calculation Initial Enrico Date Initial Exam Date Initial Exam Provider Initial Ultrasound Date Last Menstrual Period Date Ultra Sound Weeks Gestation 0 Eighteen To Twenty Week Enrico Update Ultra Sound Date Fundal Height At Umbil Quickening Date Ultra Sound Latest Weeks Gestation Final Enrico Confirmed By Final Enrico Confirmed Date Final Enrico Date Ultra Sound Latest Days Gestation 0 0 Menstrual History Last Menstrual Date Menses Monthly On Bcp Conception Prior Menses Frequency Hcg Plus Date Menarche Onset Age Delivery Information Delivery Date Delivery Type Labor Anesthesia Weeks Gestation Incision Type Labor Labor Length Hrs Delivered By Post Complications Tubal Sterilization Discharge Date Comments 5 Discharge Information Feeding Method Contraceptive Method Maternal HG B and HCT Levels Ob Episode Information Episode Created Date Number of Fetuses Patient Bloodtype Patient rh Status Prepregnancy Weight lbs Domestic Partner Domestic Partner Phone Father Name Court Operations Clerk Status 10/03/19 25 1 CLOSED Fetus Data First Name Last Name Admitted to NICU Weight (g) Sex Living Outcome Pediatric Complications Fetus ID Race Codes Race Delivery Type , Induced [id number] Enrico Calculation Initial Enrico Date Initial Exam Date Initial Exam Provider Initial Ultrasound Date Last Menstrual Period Date Ultra Sound Weeks Gestation 0 Eighteen To Twenty Week Enrico Update Ultra Sound Date Fundal Height At Umbil Quickening Date Ultra Sound Latest Weeks Gestation Final Enrico Confirmed By Final Enrico Confirmed Date Final Enrico Date Ultra Sound Latest Days Gestation 0 0 Menstrual History Last Menstrual Date Menses Monthly On Bcp Conception Prior Menses Frequency Hcg Plus Date Menarche Onset Age Delivery Information Delivery Date Delivery Type Labor Anesthesia Weeks Gestation Incision Type Labor Labor Length Hrs Delivered By Post Complications Tubal Sterilization Discharge Date Comments 3 Discharge Information Feeding Method Contraceptive Method Maternal HG B and HCT Levels Ob Episode Information Episode Created Date Number of Fetuses Patient Bloodtype Patient rh Status Prepregnancy Weight lbs Domestic Partner Domestic Partner Phone Father Name Court Operations Clerk Status 05/23/19 24 1 DELETED Enrico Calculation Initial Enrico Date Initial Exam Date Initial Exam Provider Initial Ultrasound Date Last Menstrual Period Date Ultra Sound Weeks Gestation 0 Eighteen To Twenty Week Enrico Update Ultra Sound Date Fundal Height At Umbil Quickening Date Ultra Sound Latest Weeks Gestation Final Enrico Confirmed By Final Enrico Confirmed Date Final Enrico Date Ultra Sound Latest Days Gestation 0 0 Menstrual History Last Menstrual Date Menses Monthly On Bcp Conception Prior Menses Frequency Hcg Plus Date Menarche Onset Age Delivery Information Delivery Date Delivery Type Labor Anesthesia Weeks Gestation Incision Type Labor Labor Length Hrs Delivered By Post Complications Tubal Sterilization Discharge Date Comments 3 Discharge Information Feeding Method Contraceptive Method Maternal HG B and HCT Levels Ob Episode Information Episode Created Date Number of Fetuses Patient Bloodtype Patient rh Status Prepregnancy Weight lbs Domestic Partner Domestic Partner Phone Father Name Court Operations Clerk Status 08/01/19 24 1 AB Positive 230.2 Roe Jonatan CLOSED Fetus Data First Name Last Name Admitted to NICU Weight (g) Sex Living Outcome Pediatric Complications Fetus ID Race Codes Race Delivery Type [id number] 9 M true Full Term [id number] Vaginal Delivery Enrico Calculation Initial Enrico Date Initial Exam Date Initial Exam Provider Initial Ultrasound Date Last Menstrual Period Date Ultra Sound Weeks Gestation 02/11/2024 08/01/2023 08/01/2023 12 Eighteen To Twenty Week Enrico Update Ultra Sound Date Fundal Height At Umbil Quickening Date Ultra Sound Latest Weeks Gestation Final Enrico Confirmed By Final Enrico Confirmed Date Final Enrico Date Ultra Sound Latest Days Gestation 0 [email or web address] 08/01/2023 02/11/20 24 0 Pre-david Flowsheet Flowsheet Date 08/01/2023 Hernandez Score Blood Edema Fundus Height Fundus Units Glucose Ketones Leukocytes Nitrite Labor Signs Protein Cervic Dilation Cervic Effacement Cervic Station Type Weight in lbs Pre/Post Dialysis Refused Weight 230.36164680681 BP Diastolic BP Location Tested BP Systolic BP Type 82 L arm 118 sitting Fetus Heart Rate Present A 154 Fetus Movement Comments Patient presents to [facility] care. No nausea, cramping or bleeding. NT wnl today, NB not visualized due to position. Desires NIPT, will draw today with new OB labs. complicated thus far by vaping, however patient has cut down to 1x per week. Congratulated patient on her hard work! Will begin routine care. RTC 4 weeks. Flowsheet Date 09/05/2023 Hernandez Score Blood Edema Fundus Height Fundus Units Glucose Ketones Leukocytes Nitrite Labor Signs Protein Cervic Dilation Cervic Effacement Cervic Station neg none 16 none trace Type Weight in lbs Pre/Post Dialysis Refused Weight 229.269029891326 BP Diastolic BP Location Tested BP Systolic BP Type 84 L arm 122 sitting Fetus Heart Rate Present A 150 Fetus Movement A No Comments Doing well, no cramping, ble eding, nausea. Having a boy! LR NIPT. Other OB labs wnl. Discussed anatomy US for next visit. RTC 3-4 weeks. Flowsheet Date 09/26/2023 Hernandez Score Blood Edema Fundus Height Fundus Units Glucose Ketones Leukocytes Nitrite Labor Signs Protein Cervic Dilation Cervic Effacement Cervic Station Type Weight in lbs Pre/Post Dialysis Refused BP Diastolic BP Location Tested BP Systolic BP Type Fetus Heart Rate Present Fetus Movement Comments Flowsheet Date 09/26/2023 Hernandez Score Blood Edema Fundus Height Fundus Units Glucose Ketones Leukocytes Nitrite Labor Signs Protein Cervic Dilation Cervic Effacement Cervic Station Type Weight in lbs Pre/Post Dialysis Refused Weight 233.583964807770 BP Diastolic BP Location Tested BP Systolic BP Type 81 126 Fetus Heart Rate Present A 145 Fetus Movement A Yes Comments Doing well, no issues since last visit. Baby active. Anatomy today, all visualized anatomy normal, need heart views. EFW 73%. Will repeat in 4 weeks. RTC 4 weeks. Flowsheet Date 10/24/2023 Hernandez Score Blood Edema Fundus Height Fundus Units Glucose Ketones Leukocytes Nitrite Labor Signs Protein Cervic Dilation Cervic Effacement Cervic Station Type Weight in lbs Pre/Post Dialysis Refused BP Diastolic BP Location Tested BP Systolic BP Type Fetus Heart Rate Present Fetus Movement Comments Flowsheet Date 10/24/2023 Hernandez Score Blood Edema Fundus Height Fundus Units Glucose Ketones Leukocytes Nitrite Labor Signs Protein Cervic Dilation Cervic Effacement Cervic Station Type Weight in lbs Pre/Post Dialysis Refused Weight 236.611559509777 BP Diastolic BP Location Tested BP Systolic BP Type 80 128 Fetus Heart Rate Present A 151 Fetus Movement A Yes Comments Good movement. Having some pelvic pressure while urinating, no dysuria. No bleeding. EFW 58%, normal fluid. Heart views normal, anatomy now complete. Consider 3rd tri growth at 32-36 weeks. Discussed GCT and labs for next visit. RTC 4 weeks. Flowsheet Date 11/21/2023 Hernandez Score Blood Edema Fundus Height Fundus Units Glucose Ketones Leukocytes Nitrite Labor Signs Protein Cervic Dilation Cervic Effacement Cervic Station Type Weight in lbs Pre/Post Dialysis Refused Weight 240.582613922397 BP Diastolic BP Location Tested BP Systolic BP Type 80 124 Fetus Heart Rate Present A 140 Fetus Movement A Yes Comments Baby active, no cramping or bleeding. GCT and labs today. Having some bilateral nipple discharge, normal colostrum. Discussed tdap vaccine. RTC 2 weeks. Flowsheet Date 12/05/2023 Hernandez Score Blood Edema Fundus Height Fundus Units Glucose Ketones Leukocytes Nitrite Labor Signs Protein Cervic Dilation Cervic Effacement Cervic Station none Type Weight in lbs Pre/Post Dialysis Refused Weight 243.164020940389 BP Diastolic BP Location Tested BP Systolic BP Type 80 124 Fetus Heart Rate Present A 140 Fetus Movement A Yes Comments Doing well, baby active. No cramping or bleeding. Failed 1 hour GCT, passed 3h GTT. Rediscussed tdap vaccine. Has growth US scheduled in 2 weeks. Flowsheet Date 12/19/2023 Hernandez Score Blood Edema Fundus Height Fundus Units Glucose Ketones Leukocytes Nitrite Labor Signs Protein Cervic Dilation Cervic Effacement Cervic Station Type Weight in lbs Pre/Post Dialysis Refused BP Diastolic BP Location Tested BP Systolic BP Type Fetus Heart Rate Present Fetus Movement Comments Flowsheet Date 12/19/2023 Hernandez Score Blood Edema Fundus Height Fundus Units Glucose Ketones Leukocytes Nitrite Labor Signs Protein Cervic Dilation Cervic Effacement Cervic Station Type Weight in lbs Pre/Post Dialysis Refused BP Diastolic BP Location Tested BP Systolic BP Type Fetus Heart Rate Present A 148 Fetus Movement A Yes Comments Good movement. No cram ping or bleeding. One episode of irregular contractions, self resolved. EFW 45%, vertex, normal fluid. No further US needed. Still needs tdap. Discussed preadmission. RTC 2 weeks. Flowsheet Date 01/02/2024 Hernandez Score Blood Edema Fundus Height Fundus Units Glucose Ketones Leukocytes Nitrite Labor Signs Protein Cervic Dilation Cervic Effacement Cervic Station Type Weight in lbs Pre/Post Dialysis Refused BP Diastolic BP Location Tested BP Systolic BP Type Fetus Heart Rate Present A 130 Fetus Movement A Yes Comments No cramping or bleeding. Bab y active. Needs Tdap and preadmission scheduled. Considering elective induction on 01/05 or 01/06. Discussed GBS swab for next visit. RTC 2 weeks. Flowsheet Date 01/17/2024 Hernandez Score Blood Edema Fundus Height Fundus Units Glucose Ketones Leukocytes Nitrite Labor Signs Protein Cervic Dilation Cervic Effacement Cervic Station Type Weight in lbs Pre/Post Dialysis Refused Weight 248.884438446227 BP Diastolic BP Location Tested BP Systolic BP Type 82 120 Fetus Heart Rate Present A 135 Fetus Movement A Yes Comments Doing well, some BH contract ions. No bleeding or LOF. Good movement. Would like to schedule EIL on 02/05. GBS collected today. Labor precautions reviewed. RTC 1 week. Flowsheet Date 01/24/2024 Hernandez Score Blood Edema Fundus Height Fundus Units Glucose Ketones Leukocytes Nitrite Labor Signs Protein Cervic Dilation Cervic Effacement Cervic Station 1cm 50% -3 Type Weight in lbs Pre/Post Dialysis Refused 252.036341978776 BP Diastolic BP Location Tested BP Systolic BP Type 80 137 Fetus Heart Rate Present A 140 Fetus Movement A Yes Comments Good movement. Intermi ttent mild contractions. No LOF or VB. EIL scheduled. GBS negative. RTC 1 week. Labor precautions reviewed Flowsheet Date 01/30/2024 Hernandez Score Blood Edema Fundus Height Fundus Units Glucose Ketones Leukocytes Nitrite Labor Signs Protein Cervic Dilation Cervic Effacement Cervic Station neg none none trace Type Weight in lbs Pre/Post Dialysis Refused Weight 255.489528336390 BP Diastolic BP Location Tested BP Systolic BP Type 86 L arm 143 sitting Fetus Heart Rate Present A 155 Fetus Movement A Yes Comments Patient c/o of stomach pain last night stated lasted 12 minutes, likely early contractions. No bleeding or LOF. Good movement. BP mildly elevated, discussed warning signs to present to the hospital for. Labor precautions reviewed. EIL scheduled 02/05. Menstrual History Last Menstrual Date Menses Monthly On Bcp Conception Prior Menses Frequency Hcg Plus Date Menarche Onset Age Genetic Screening And Infection History Question Response Note Mental Retardation/Autism false Patient's Age Will Be 35 Years Or Older At Estim ated Date of Delivery false Thalassemia (Mauritanian, Cymro, Mediterranean, Or Background): MCV < 80 false Neural Tube Defect (Meningomyelocele, Spina Bifi da, Or Anencephaly) false Congenital Heart Defect false Down Syndrome false Rei-Sachs (eg, Orthodox, Cajun, Croatian-[place]guada) f alse Lucy Disease false Sickle Cell Disease Or Trait () false Hemophilia Or Other Blood Disorders false Muscular Dystrophy false Cystic Fibrosis false Dingess's Chorea false Intellectual Disability/Autism false If Yes, Was Person Tested For Fragile X? false Other Inherited Genetic Or Chromosomal Disorder false Maternal Metabolic Disorder (eg, Type 1 Diabetes , PKU) false Patient Or Baby's Father Had A Child With Defects Not Listed Above false Recurrent Loss, Or A Stillbirth false Medications (including Suppl ements, Vitamins, Herbs, OTC Drugs), Illicit/Recreational Drugs, Alcohol false If Yes, Agent(s) And Strength/Dosage false Any Other Genetic History false Live With Someone With TB Or Exposed To TB false Patient Or Partner Has History Of Genital Herpes false Rash Or Viral Illness Since Last Menstrual Perio d false History Of STD, Gonorrhea, Chlamydia, HPV, Syphi lis false Other Infection History false History of HIV false History of Hepatitis false Prior GBS-infected child false Hemoglobinopathy Or Carrier false Other Structural Defect false Recent Travel History Outside of Country false Delivery Information Delivery Date Delivery Type Labor Anesthesia Weeks Gestation Incision Type Labor Labor Length Hrs Delivered By Post Complications Tubal Sterilization Discharge Date Comments 4 Induce d Regional-Ep idural 39.3 false Yuliet Velasco MD Discharge Information Feeding Method Contraceptive Method Maternal HG B and HCT Levels
--- OUTSIDE RECORDS SUMMARY | 2025-03-03 15:13 | XMS_ITS | Clinical Summary ---
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 This disclosure is being madepursuant to the Care Everywhere program and may not contain all information available regarding this patient. Last updated 18.[facility] Allergies Active Allergy Reactions Criticality Noted Date Comments Shellfish Allergy Urticaria Medium 08/16/2018 Medications * Be aware that medications may not be up to date on this document. Alwaysverify current medications with the patient. norelgestromin- ethinyl estradiol (ORTHO-EVRA) 150-35 MCG/24HR patch Apply 1 (one) patch to skin every 7 days 3 patch 3 2 Active cefixime (SUPRAX) 400 MG capsule Take 2 (two) capsules by mouth once daily 2 capsule 2 Active Methylphenidate ER (METADATE ER; RITALIN SR) 20 MG tablet Take 1 (one) tablet by mouth every morning 30 tablet 2 Active Xulane 150-35 MCG/24HR patch APPLY 1 PATCH TO THE SKIN EVERY 7 DAYS FOR 3 WEEKS, THEN GO PATCHLESS FOR THE FOURTH WEEK 3 patch 11 2 Active medroxyPROGESTE Aurelio (Depo-Provera) 150 MG/ML vial Inject 1 mL into muscle Every 90 days 1 mL 3 2 Active Active Problems Problem Noted Date Diagnosed Date ADHD (attention deficit hyperactivity disorder) 01/24/2014 Body mass index, pediatric, 85th percentile to less than 95th percentile for age Overview (02/24/2009): 12/27/08 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): 04,01/22/05 RAD (reactive airway disease) Overview (02/24/2009): 09/01/06 Resolved Problems Problem Noted Date Diagnosed Date Resolved Date Routine or child health check 03/26/2020 Overview (02/24/2009): 04,01/22/05,02/16/05,04/19/05,06/25/05,09/16/05,01/03/06,01/22/08,12/27/08 Acute upper respiratory infection 02/27/2015 Overview (02/13/2015): 09/07/07,07/18/08 Acute conjunctivitis 015 Overview (02/13/2015): 09/07/07 Sinusitis 03/26/2020 Overview (02/24/2009): 05/18/05 Pneumonia due to organism Overview (02/24/2009): 07/08/05,07/25/06 Otitis media 03/26/2020 Overview (02/13/2015): 08/19/05 Cephalohematoma 03/26/2020 Overview (02/24/2009): 04,01/22/05 Bronchiolitis 03/26/2020 Overview (02/24/2009): 06/25/05 URI (upper respiratory infection) 03/26/2020 Overview (02/24/2009): 11/30/05 Teething syndrome 03/26/2020 Overview (02/24/2009): 11/30/05,11/01/06 Rhinitis 03/26/2020 Overview (02/24/2009): 04/15/06 Diaper or napkin rash 2019 Overview (02/24/2009): 11/01/06 Immunizations Immunization Administration Dates Next Due DTAP/IPV 11/21/2009 DTaP VACCINE IM (6wk-6yrs) 01/22/2008,,04/19/2005,02/16 HEP A PEDS 2 DOSE 12/26/2008,01/22/2008 HEP B VACCINE, PED/ADOL 06/25/2005,04/19,02/16/2005,12/14 HIB BOOSTER 06/25/2005,04/19/2005,02/16/2005 Human Papilloma Virus Nineva lent Vaccine 08/16/2018,01/03/2017 MENINGOCOCCAL ACWY (MCV4P) VAC IM 01/03/2017 MMR 12/26/2008,01/03/2006 PNEUMOCOCCAL CONJ, PEDS 01/03/2006,06/25,04/19/2005,02/16 POLIO IPV 06/25/2005,04/19/2005,02/16/2005 PPD 01/03/2006 TDAP (7yrs+) 01/03/2017 VARICELLA 12/26/2008,01/22/2008 Social History Tobacco Use Types Packs/Day Years Used Date Smoking Tobacco: Former Cigarettes Smokeless Tobacco: Never Comments:used once Alcohol Use Standard Drinks/Week Comments Yes 0 (1 standard drink = 0.6 oz pur e alcohol) rarely AUDIT-C Answer Date Recorded Q1: How often do you have a drink containing alc ohol? Monthly or less 2019 Q2: How many drinks containi ng alcohol do you have on a typical day when you are drinking? 1 or 2 2019 Q3: How often do you have si x or more drinks on one occasion? 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 Gender Identity Not on file Sexual Orientation Not on file Last Filed Vital Signs Vital Sign Reading Time Taken Comments Blood Pressure 118/72 09/08/2020 2:03 PM CDT Pulse 82 2019 1:26 PM CDT Temperature 36.4 C (97.5 F) 10/20/2021 9:03 AM CDT Respiratory Rate - - Oxygen Saturation - - Inhaled Oxygen Concentration - - Weight 96.6 kg (213 lb) 10/20/2021 9:03 AM CDT Height 158.8 cm (5' 2.5) 09/08/2020 2:03 PM CDT Body Mass Index - - Plan of Treatment Health Maintenance Due Date Last Done Comments HIV SCREENING 12/15/2019 MENINGOCOCCAL (Group B) VACCINE SHARED DECISION-MAKING (1 of 2 - Standard) 2020 CHLAMYDIA/GONORRHEA SCREENING 10/20/2022 10/20/2021, 01/15/2021, 2019 HEPATITIS C SCREENING 12/10/2022 DEPRESSION SCREENING 05/16/2024 10/20/2021, 2019, 2019 COVID-19 VACCINE ( season) 2025 03/30/2021, 01/23/2021 INFLUENZA VACCINE (#1) 2025 DTAP/TDAP/TD VACCINES (7 - Td or Tdap) 01/03/2027 01/03/2017, 11/21/2009, 01/22/2008, Additional history exists ZOSTER VACCINE (1 of 2) 2054 HEPATITIS B VACCINE Completed 06/25/2005, 04/19/2005, 02/16/2005, Additional history exists HIB VACCINE Aged Out 06/25/2005, 1209/2004, 02/16/2005 No longer eligible based on patient's age to complete this topic PNEUMOCOCCAL VACCINE Completed 01/03/2006, 06/25/2005, 04/19/2005, Additional history exists MENINGOCOCCAL GROUPS A/C/Y/W VACCINE Aged Out 01/03/2017 No longer eligible based on patient's age to complete this topic HPV VACCINE Completed 08/16/2018, 01/03/2017 Goals Goal Patient Goal Type Associated Problems Recent Progress Patient-Stated? Author Use safety retraint in car Lifestyle On track( 017 3:26 PM CDT) Ginna Wells RN Procedures Procedure Name Priority Date/Time Associated Diagnosis Comments VAGINITIS PLUS (BV,CA,CT,NG,TR)+HS V Routine 10/20/2021 9:30 AM CDT Vaginal discharge from Last 3 Months or Most Recently Relevant to Health Maintenance Results * (ABNORMAL) VAGINITIS PLUS (BV,CA,CT,NG,TR)+HSV (10/20/2021 9:30 AM CDT) Atopobium vaginae High - 2(A) Score [facility] INSURANCE BILL BVAB 2 High - 2(A) Score [facility] INSURANCE BILL Megashaera High - 2(A) Score [facility] INSURANCE BILL Comment: Calculate total score by adding the 3 individual bacterial vaginosis (BV) marker scores together. Total score is interpreted as follows: Total score 0-1: Indicates the absence of BV. Total score 2: Indeterminate for BV. Additional clinical data should be evaluated to establish a diagnosis. Total score 3-6: Indicates the presence of BV. . This test was developed and its performance characteristics determined by [facility]. It has not been cleared or approved by the Food and Drug Administration. Devorah albicans DELROY Negative Negative [facility] INSURANCE BILL Devorah glabrata DELROY Negative Negative [facility] INSURANCE BILL Trichomonas vaginalis by DELROY Negative Negative [facility] INSURANCE BILL Chlamydia Trachomatis DELROY Negative Negative [facility] INSURANCE BILL GC DELROY Negative Negative [facility] INSURANCE BILL Herpes Simplex Virus 1 DELROY Negative Negative [facility] INSURANCE BILL Herpes Simplex Virus 2 DELROY Negative Negative [facility] INSURANCE BILL Microbiology ENTIRE VAGINA / Unknown 10/20/2021 9:30 AM CDT 10/20/2021 Narrative [facility] INSURANCE BILL - 10/23/2021 10:10 AM CDT Test(s) 456993-Uoerbxi albicans, DELROY; [id number]-Eixkqjd glabrata, DELROY was developed and its performance characteristics determined by [facility]. It has not been cleared or approved by the Food and Drug Administration. 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
[2025-03-03 15:16] VITALS: BP 150/86; PULSE 87; RESP 16; TEMP 36.6; O2SAT 98
--- NOTE | 2025-03-03 15:35 | ED.GENADULT ---
HPI - General Adult General Chief complaint: Unspecified Stated complaint: lip sores Time Seen by Provider: 03/03/25 15:26 History of Present Illness HPI narrative: 19-year-old female presents to the emergency department for evaluation for sores on the inside of her lip that started approximately 3 days ago. Patient reports he has also been biting the inside of her lip more frequently secondary to nerves. Patient reports she did case someone a few days ago and was concerned that this may be herpetic. Patient's partner did not have any obvious lesions. Related Data Home Medications ?Medication ?Instructions ?Recorded ?Confirmed ?Last Taken ?Type tirxssnr-cis-Pl-FA 1 mg 1 tablet PO DAILY 01/05/24 02/06/24 01/05/24 08:00 History tablet Allergies Allergy/AdvReac Type Severity Reaction Status Date / Time No Known Allergies Allergy Verified 03/03/25 15:13 Review of Systems Review of Systems: All systems reviewed & are unremarkable except as noted in HPI and below PMFSH Past Medical History Medical History IUP (intrauterine ), incidental Morbid obesity with BMI of 45.0-49.9, adult No pertinent past medical history Vapes nicotine containing substance Surgical History Surgical History No significant past surgical history Family History Family History Father Hypertension Diabetes mellitus Mother Alive and well Social History Social History Smoking status: Never smoker Tobacco type: e-cigarettes/vaping Second hand tobacco smoke exposure: No Alcohol intake: former Substance use: never Do You Feel Safe in your Home?: Yes Lack of Transportation: No Lack of Food: Never True Current Housing: I Have Housing Concerned About Future Housing: No Difficulty Paying Gas/Electric Bills: No Difficulty Paying for Meds: No Currently Unemployed: No Education: Grade School Difficulty w/ Childcare or Family Care: No Living arrangements: with family Occupation/Education: student Gender identity (if verbalized by the patient): Female Sexual Orientation (if Verbalized by the Patient): Straight or Heterosexual Spiritual care concerns: No Exam Narrative: APPEARANCE: Well appearing, no pain, no distress, well-nourished. HEAD: normocephalic, atraumatic. EYES: PERRLA/EOMI, conjunctivae clear. NOSE: Normal no drainage EARS:TMS clear with good light reflex. THROAT: Pharynx clear, no exudate. NECK: Supple. No adenopathy, no masses Lips: Non ulcerated non herpetic lesion on inside of lower lip. RESPIRATORY: Airway patent, respirations nonlabored. Clear to auscultation bilaterally, no rales, rhonchi, wheezing. CARDIOVASCULAR: Regular rate and rhythm without murmurs rubs or gallops. ABDOMINAL: Soft, nontender, nondistended, normal bowel sounds MUSCULOSKELETAL: Moves all extremities. Strength/ROM intact, No edema, No calf tenderness. NEURO: Alert. Cranial nerves II through XII intact. Good gait. Good coordination SKIN: Warm, dry. Normal Color Course Vital Signs Vital signs: Vital Signs Temperature 97.8 F 03/03/25 15:16 Pulse Rate 87 03/03/25 15:16 Respiratory Rate 16 03/03/25 15:16 Blood Pressure 150/86 H 03/03/25 15:16 Pulse Oximetry 98 03/03/25 15:16 Temperature 97.8 F 03/03/25 15:16 Pulse Rate 87 03/03/25 15:16 Respiratory Rate 16 03/03/25 15:16 Blood Pressure 150/86 H 03/03/25 15:16 Pulse Oximetry 98 03/03/25 15:16 Medical Decision Making MDM Narrative Medical decision making narrative: 19-year-old female presents emergency department for evaluation for irritation of the skin on the inside of her lower lip. No ulcerated lesions concerning for canker sores or herpetic lesions. Suspect patient has skin irritation secondary to her biting and chewing on her lip. Patient was advised to cease this behavior to have close follow-up with her primary care physician. Differential Diagnosis Differential Diagnosis: Herpes simplex, canker sores, skin injury Vital Signs Vital Signs: Vital Signs Temperature 97.8 F 03/03/25 15:16 Pulse Rate 87 03/03/25 15:16 Respiratory Rate 16 03/03/25 15:16 Blood Pressure 150/86 H 03/03/25 15:16 Pulse Oximetry 98 03/03/25 15:16 Temperature 97.8 F 03/03/25 15:16 Pulse Rate 87 03/03/25 15:16 Respiratory Rate 16 03/03/25 15:16 Blood Pressure 150/86 H 03/03/25 15:16 Pulse Oximetry 98 03/03/25 15:16 Discharge Plan Discharge Clinical Impression: Injury of skin of lip Patient Disposition: Home Condition: Stable Instructions: Antibiotic Form Additional Instructions: Avoid sucking or biting your lip. Vaseline on the lip to help soothe the injured skin. Have close follow-up with your primary care physician. Patient Language: Amharic Prescriptions: No Action docusate sodium 100 mg Capsule 100 mg PO BID PRN (Reason: Constipation) Qty: 60 0RF ibuprofen 600 mg Tablet 600 mg PO Q6H PRN (Reason: Cramping) Qty: 30 0RF vshqiwfz-qpd-Cw-FA 1 mg Tablet 1 tablet PO DAILY Follow-up/Referrals: Chet Mccabe MD [Primary Care Provider, PRE CERTIFICATION SPECIALIST]
== END 2025-03-03 15:57 | disposition home or self-care (01) ==
PROVIDERS: Emergency Provider Emergency Medicine; PCP Obstetrics & Gynecology
DX: S09.8XXA Other specified injuries of head, initial encounter (principal); F17.290 Nicotine dependence, other tobacco product, uncomplicated; X58.XXXA Exposure to other specified factors, initial encounter
CPT/HCPCS: 99282